=== PATIENT | female | born 1975 | race African-American/Black ===

== ENCOUNTER → 2018-02-26 | Outpatient (CLI) | payer OTHER ==
[~2018-02-26] MED LIST: DEPO-PROVER150 MG/M1 IM; NAPROSYN500 MG PO
== END ==
LOC: RAD 01:42
DX: Z12.31 Encounter for screening mammogram for malignant neoplasm of breast (principal)

== ENCOUNTER → 2018-03-25 | Outpatient (CLI) | payer OTHER | LOC: ULTRA 06:24 | DX: D25.9 Leiomyoma of uterus, unspecified (principal); N85.2 Hypertrophy of uterus; N83.201 Unspecified ovarian cyst, right side; N85.8 Other specified noninflammatory disorders of uterus ==